=== PATIENT | female | born 1985 | race Caucasian/White ===

== ENCOUNTER 2025-05-07 16:11 | Emergency (ER) | payer OTHER, SELFPAY ==
[2025-05-07] VITALS (8 sets, daily range): BP systolic 89–130; BP diastolic 62–95; BMI 32.4
--- NOTE | 2025-05-07 16:24 | EDRN ---
[facility], states she took compazine earlier.
[2025-05-07 16:50] LABS: Hematocrit 39.9 % (37.0-47.0); Hemoglobin 13.9 g/dL (12.0-16.0); Mean Corp Hgb Conc. 34.8 g/dL (33.0-37.0); Mean Corpuscular Volume 84.5 fL (81.0-99.0); Nucleated Red Blood Cells % 0 %; Platelet Count 366 10^3/uL (130-400); Red Cell Dist. Width 12.5 % (11.5-14.5)
[2025-05-07 17:04] LABS: HCG, Serum Qualitative Screen Negative
[2025-05-07 17:07] LABS: ALT (SGPT) 16 U/L (0-35); AST (SGOT) 21 U/L (14-36); Albumin 4.6 g/dl (3.5-5.0); Alkaline Phosphatase 50 U/L (38-126); Blood Urea Nitrogen 13 mg/dl (7-17); Calcium 10.3 mg/dl (8.4-10.2); Carbon Dioxide 18 mmol/L (22-30); Chloride 106 mmol/L (98-107); Glucose 78 mg/dl (70-99); Lipase 82 U/L (23-300); Potassium 3.5 mmol/L (3.5-5.1); Sodium 137 mmol/L (135-145); Total Protein 7.4 g/dl (6.3-8.2); eGFR > 60.00
--- NOTE | 2025-05-07 18:45 | ED.GENMED ---
History of Present Illness
General
Chief Complaint: Abdominal Pain
Time Seen by Provider: 05/07/25 18:14
History of Present Illness
History of Present Illness:
39-year-old female with history of anxiety presenting to the emergency department for nausea and vomiting as well as abdominal pain. Patient reports that she has been on Wegovy for the past 2 months, and in the past 3 weeks has had increasing
nausea and dry heaving. She was due for dose today, however given her symptoms, reduced her dose. Reports that she has not been able to eat very much in the past 3 days and has been rapidly losing weight. Also reports chronic gastric issues,
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 Denies chest pain or difficulty breathing. Additionally is concern for possible STD. Reports new sexual partner in the past few weeks and is now having some vaginal spotting.
Denies any malodor or abnormal discharge. Reports generalized abdominal pain. Denies fever. Denies additional acute medical complaints
Phy Exam
Physical Exam
Physical Exam:
General: Well-appearing, no clinical signs of dehydration, nontoxic and in no acute distress
HEENT: protecting airway
Neck: appears supple
CV: Normal heart rate
Resp: No accessory muscle use, no increased work of breathing
Abd: Soft and non-distended, mild generalized tenderness without rebound or guarding
Extremities: No deformities, no swelling
Neuro: alert, no focal neurologic deficit
: deferred
Rectal: deferred
Psych: Normal affect
Skin: Intact
Course
Orders/Labs/Results
Orders:
Orders
05/07/25 16:23
Electrocardiogram (*1) Urgent
Reason for Study: Abdominal Pain
EKG- Treatment ONCE
Test Result ONCE
05/07/25 16:37
Complete Blood Count/With Diff Urgent
Comprehensive Metabolic Panel Urgent
HCG, Serum Qualitative Screen Urgent
Comment: Notify provider if positive test present
Lipase Urgent
05/07/25 18:39
0.9% Sodium Chloride 1000 ml [Nss] 1,000 ml IV BOLUS
Ondansetron Injectable [Zofran] 4 mg IV NOW STA
Pantoprazole [Protonix IV] 40 mg IV NOW STA
05/07/25 18:41
CT Abd/pelvis W Iv Cont Urgent
Comment:
Reason For Exam: generalized pain, N/V, on wagovy
05/07/25 21:49
Urinalysis Reflex To Culture Urgent
Date Specimen was Collected: 05/07/25
Time Specimen was Collected: 21:48
Urine Microscopic Reflex Cult Urgent
Chlamydia/GC by PCR Urgent
[facility] Source: Urine
Specimen Description:
Source:: URINE
Date Specimen was Collected: 05/07/25
Time Specimen was Collected: 21:50
05/07/25 22:49
0.9% Sodium Chloride 1000 ml [Nss] 1,000 ml IV BOLUS
Metoclopramide [Reglan] 10 mg IV NOW STA
Abnormal Lab Results
05/07/25 05/07/25
16:37 21:49
Absolute Neuts (auto) 6.7 H 10^3/uL
(1.4-6.5)
Absolute Monos (auto) 0.7 H 10^3/uL
(0.1-0.6)
Lymphocytes % 19.8 L %
(20.5-51.1)
Carbon Dioxide 18 L mmol/L
(22-30)
Calcium 10.3 H mg/dl
(8.4-10.2)
Urine Ketones 3+ A
(Negative)
Urine Bacteria (Reflex) Few A
(Negative)
Urine Albumin (Reflex) 2+ A
(Neg - Trace)
05/07/25 16:37
05/07/25 16:37
Vital Signs
Initial and Last Documented VS:
Initial Vital Signs
Temp Pulse Resp BP Pulse Ox
98.9 F 80 16 129/95 98
05/07/25 16:15 05/07/25 16:15 05/07/25 16:15 05/07/25 16:15 05/07/25 16:15
Last Documented Vital Signs
Temp Pulse Resp BP Pulse Ox
98.9 F 69 19 117/77 97
05/07/25 16:15 05/07/25 23:15 05/07/25 23:15 05/07/25 23:00 05/07/25 23:15
MDM/Problems Addressed
MDM/Problems Addressed:
39-year-old female with anxiety presenting to the emergency department for abdominal discomfort with nausea and dry heaving. Vital signs on arrival are normal.
On exam, patient is nontoxic, no acute distress. Patient with persistent dry heaving, no active emesis. No significant distention to the abdomen. Generalized nonfocal tenderness. Ultimately suspect symptoms are from Wegovy. Notes chronic GI
issues in the past, worsened after she started Wegovy 2 months ago. She has had difficulty tolerating p.o. suspect underlying enteritis and gastritis. Lower suspicion for additional acute pathology, however given generalized discomfort, will
obtain CT imaging. Will treat with IV fluids, antiemetics, pantoprazole. Patient also expresses concern over new sexual partner, possible STD. Will send gonorrhea and chlamydia and urinalysis.
00:45 -CT without acute pathology. Continue to suspect symptoms are from Wegovy. In discussion with patient, would like to wait for results when he and gonorrhea, low suspicion for acute STD. Patient is feeling better, tolerated jian carolee. Feel
stable for discharge, however advised that she discuss with her doctor regarding continuation of Wegovy given her persistent symptoms. Return precautions discussed and patient verbalized understanding
*Pulse Oximetry
SaO2: 98
Oxygen Mode of Delivery: Room air
Patient hypoxic: no
*Critical Care Note
Total Time (30-74mins, 75-104mins- exclusive of procedures): Not Applicable
ED Attending Note
-
Portions of this chart may have been created with voice recognition software.� Occasional wrong word or��sound alike� substitutions may have occurred due to the inherent limitations of voice recognition software.
Discharge Plan
Departure
Referrals:
Yael Jean DO [Family Provider, Family Practice]
Interventions
Interventions:
*Risk Screen - Suicide Last Done: 05/07/25 16:15
*General Assessment Last Done: 05/07/25 18:44
*Neglect/Abuse Screening Last Done: 05/07/25 16:15
*ED- Fall Risk Assessment Last Done: 05/07/25 16:15
*ED COVID-19 Vaccine History Last Done: 05/07/25 18:44
[facility]-Ltgkcl-Irutsccyun Assessment Last Done: 05/07/25 19:04
Discharge Date and Time
Print Language: NEPALI
[2025-05-07] MEDS: NSS 1000 IV ×2 (18:46→22:56)
[2025-05-07] MEDS: ZOFRAN 4 MG IV (19:01)
[2025-05-07] MEDS: PROTONIX IV 40 MG IV (19:01)
[2025-05-07 22:11] LABS: Urine Character Clear (Clear)
[2025-05-07 22:19] LABS: Urine Squamous Cell >30 /LPF (Few)
[2025-05-07 22:20] LABS: Urine Red Blood Cell 0-2 /HPF (0-2); Urine White Cell 0-2 /HPF (0-5)
[2025-05-07] MEDS: REGLAN 10 MG IV (23:00)
[2025-05-08] VITALS: BP 97/67
[2025-05-08 01:20] VITALS: BP 120/83
== END 2025-05-08 01:20 | disposition home or self-care (01) ==
LOC: EMR 16:11
PROVIDERS: Emergency Medicine; EMERGENCY PHYSICIAN Student in an Organized Health Care Education/Training Program; FAMILY PHYSICIAN Family Medicine
DX: K29.70 Gastritis, unspecified, without bleeding (principal); F41.9 Anxiety disorder, unspecified; Z98.84 Bariatric surgery status
CPT/HCPCS: 99284; 96374; 96375 ×2; 96361 ×2; 74177; 80053; 81003; 81015; 83690; 84703; 85025; 87491; 87591; 93005; Q9967